=== PATIENT | male | born 2005 | race Caucasian/White ===

== ENCOUNTER 2024-01-01 22:31 | Emergency (ER) | payer SELFPAY ==
[2024-01-01 23:38] LABS: #Basophils 0.04 10x3/uL (0.0-0.2); #Eosinophils 0.25 10x3/uL (0.0-0.5); #Monocytes 0.58 10x3/uL (0.0-1.1); #Neutrophils 6.06 10x3/uL (1.5-8.4); %Basophils 0.4 % (0.0-2.0); %Eosinophils 2.5 % (0.0-6.0); %Lymphocytes 30.8 % (18.0-47.0); %Monocytes 5.8 % (0.0-10.0); %Neutrophils 60.3 % (40.0-75.0); Hematocrit 41.1 % (38.8-50.0); Hemoglobin 13.7 g/dL (13.5-17.5); Mean Corpuscular HGB CONC 33.3 g/dL (32.0-36.0); Mean Corpuscular Hemoglobin 29.9 pg (27.0-33.0); Mean Corpuscular Volume 89.7 fL (81.2-95.1); Mean Platelet Volume 9.5 fL (7.4-10.4); Platelet Count 273 10x3/uL (150-450); RBC Distribution Width 12.5 % (11.5-14.5); Red Blood Cell (RBC) Count 4.58 10x6/uL (4.32-5.72)
[2024-01-01 23:51] LABS: ALT (SGPT) 21 U/L (8-55); AST (SGOT) 22 U/L (10-45); Albumin 4.2 g/dL (3.5-5.0); Alkaline Phosphatase 55 U/L (50-130); Anion Gap 14 mmol/L (10-20); BUN (Urea Nitrogen) 18 mg/dL (8.4-21.0); Bilirubin, Total 0.5 mg/dL (0.2-1.2); Calc. Creatinine Clearance 0 mL/min (70-130); Calcium 9.7 mg/dL (7.8-10.44); Carbon Dioxide 23 mmol/L (22-29); Chloride 106 mmol/L (98-107); Estimated GFR 107; Globulin 2.5 g/dL (2.4-3.5); Glucose 90 mg/dL (70-105); Lipase 26 U/L (8-78); Potassium 3.8 mmol/L (3.5-5.1); Protein, Total 6.7 g/dL (6.0-8.3); Sodium 139 mmol/L (136-145)
[2024-01-01 23:58] LABS: Troponin I 0.032 ng/mL (< 0.028)
[2024-01-02 01:45] LABS: Troponin I 0.028 ng/mL (< 0.028)
== END 2024-01-02 02:00 | disposition home or self-care (01) ==
LOC: CSHERS 22:31
DX: R07.2 Precordial pain (principal)
CPT/HCPCS: 36415; 71045; 80053; 83690; 84484; 85025; 85379; 93005; 93010